=== PATIENT | female | born 1955 | race Caucasian/White ===

== ENCOUNTER → 2020-11-05 | Outpatient (CLI) | payer SELFPAY ==
[~2020-11-05] MED LIST: ASPIR 8181 MG PO; ATORVASTATIN CA20 MG PO; BRILINTA 90 MG90 MG PO; CARVEDILOL25 MG PO; CATAPRES 0.1MG0.1 MG PO; EFFEXOR XR150 MG PO; LISINOPRIL10 MG PO; NORCO 7.5-3251 EACH PO; PRAVASTATIN SOD10 MG PO; PROTONIX40 MG PO; SYNTHROID125 MCG PO; ZANTAC150 MG PO
== END ==
LOC: MAMO 09-24 15:00
DX: Z12.31 Encounter for screening mammogram for malignant neoplasm of breast (principal)
CPT/HCPCS: 77063; 77067

== ENCOUNTER → 2021-02-19 | Outpatient (CLI) | payer SELFPAY ==
[2021-02-19 14:16] LABS: BUN/CREATININE RATIO 11 (0-10)
== END ==
LOC: LAB 12:59
PROVIDERS: Family Medicine
DX: I10 Essential (primary) hypertension (principal); E03.9 Hypothyroidism, unspecified
CPT/HCPCS: 36415; 80053; 80061; 84443

== ENCOUNTER → 2021-08-26 | Outpatient (CLI) | payer MEDICARE | LOC: RT 12:23 | DX: Z01.810 Encounter for preprocedural cardiovascular examination (principal) | CPT/HCPCS: 93005 ==